=== PATIENT | female | born 1990 | race Caucasian/White ===

== ENCOUNTER 2023-03-11 14:15 | Outpatient (CLI) | payer OTHER ==
[2023-03-11 18:20] LABS: THYROID STIMULATING HORMONE 2.48 uIU/mL (0.34-5.60)
== END 2023-03-11 14:16 | disposition home or self-care (01) ==
LOC: LAB.N 14:15
PROVIDERS: ATTEND Nurse Practitioner Obstetrics & Gynecology
DX: Z31.41 Encounter for fertility testing (principal)
CPT/HCPCS: 36415; 84144; 84439; 84443

== ENCOUNTER 2023-03-24 14:55 | Outpatient (CLI) | payer OTHER | END 2023-03-24 14:56 | disposition home or self-care (01) | LOC: LAB.N 14:55 | PROVIDERS: ATTEND Nurse Practitioner Obstetrics & Gynecology | DX: Z31.41 Encounter for fertility testing (principal) | CPT/HCPCS: 36415; 83001 ==

== ENCOUNTER 2023-04-16 12:25 | Outpatient (CLI) | payer OTHER ==
[2023-04-16 18:32] LABS: THYROID STIMULATING HORMONE 1.06 uIU/mL (0.34-5.60)
== END 2023-04-16 12:26 | disposition home or self-care (01) ==
LOC: LAB.N 12:25
PROVIDERS: ATTEND Nurse Practitioner Obstetrics & Gynecology
DX: E03.9 Hypothyroidism, unspecified (principal)
CPT/HCPCS: 36415; 84439; 84443